=== PATIENT | female | born 1955 | race Two or more races ===

== ENCOUNTER → 2016-10-11 | Outpatient (CLI) | payer OTHER ==
--- NOTE | 2016-10-11 11:30 | RADRPT ---
PROCEDURE: Left knee radiographs. CLINICAL INDICATION: Left knee pain. TECHNIQUE: Four views. Weight bearing. Frontal, lateral, oblique, and patellar view. COMPARISON: No prior studies are available for comparison. FINDINGS: There is no fracture or dislocation. The soft tissues are normal. There are degenerative changes with osteophytes arising from all 3 joint compartment margins. There is medial joint compartment narrowing, subarticular sclerosis, and deformity. There is no lytic or blastic lesion. There is no radiopaque foreign body. IMPRESSION: 1. Severe degenerative changes of the left knee. 2. No acute abnormality. RPTAT: QQ .Ronak Holley MD, MD Date Time Electronically viewed and signed by .Ronak Holley MD, MD on 10/11/2016 11:30 .R/
== END | disposition home or self-care (01) ==
LOC: HKI 10:06
PROVIDERS: ATTEND Orthopaedic Surgery
DX: M25.562 Pain in left knee (principal)

== ENCOUNTER → 2017-02-03 | Outpatient (CLI) | payer OTHER ==
--- NOTE | 2017-02-04 07:11 | HKNOTE ---
DATE OF SERVICE: 02/03/2017 CHIEF COMPLAINT: Left knee pain. HISTORY OF PRESENT ILLNESS: This is a 61-year-old obese female who is complaining of bilateral knee pain with the left greater than right. She is using a walker for ambulation. Since her previous e valuation by Dr. Landis, she has lost approximately 35 pounds. She states that the left knee pain i s severe. She has not had any previous injections. She denies any hip or groin pain. She has had a previous lumbar fusion with Dr. Thrasher at [facility]. GAIT: Antalgic gait, use of walker. LEFT KNEE EXAMINATION: No effusion. Minimal varus deformity. 0 to 120 degrees range of motion, me dial joint line tenderness. Negative Renard, negative anterior drawer, negative posterior drawer, stable to varus and valgus stress. RIGHT KNEE EXAMINATION: No effusion. Minimal varus deformity. 0 to 120 degrees range of motion, m edial joint line tenderness. Negative Renard, negative anterior drawer, negative posterior drawer, stable to varus and valgus stress. MOTOR STRENGTH: 5/5 quads, hamstrings, tibialis anterior, gastrocsoleus. X-RAYS LEFT KNEE: Three views of the left knee demonstrate mild varus deformity with medial joint s pace obliteration with bone on bone contact. There is marginal osteophytes and subchondral sclerosi s. There is marked patellofemoral joint narrowing. IMPRESSION: A 61-year-old obese female with bilateral knee osteoarthritis. PLAN: I discussed treatment options including a left knee corticosteroid injection. We will reques t authorization for an injection. She will return in 4 weeks for left knee corticosteroid injection . She can take ibuprofen as needed. I discussed the risk of injection which include increase in bl ood sugar, allergic reaction, infection, continued pain. All questions were answered to her satisfa ction. I also discussed weight loss management with the patient. Dictated By: SHERRIE TRUONG/PADMINI Conf#: [id number] DID#: [id number]
--- NOTE | 2017-02-05 13:03 | RADRPT ---
PROCEDURE: XR Knee. CLINICAL INDICATION: Pain TECHNIQUE: AP, oblique, sunrise, and lateral views of the right knee were obtained weight bearing. The images reviewed on a PACS workstation. COMPARISON: None FINDINGS: No acute fracture or dislocation. There is severe, tricompartmental osteoarthritis with bone on bone contact in the medial compartment. No joint effusion or osseous lesion. IMPRESSION: No fracture, dislocation or joint effusion. Severe, tricompartmental, osteoarthritis. RPTAT: EE .Cassandra Li MD, Date Time Electronically viewed and signed by .Cassandra Li MD, on 02/05/2017 13:03 .F/
== END | disposition home or self-care (01) ==
LOC: HKI 10:48
PROVIDERS: ATTEND Orthopaedic Surgery Adult Reconstructive Orthopaedic Surgery
DX: M17.0 Bilateral primary osteoarthritis of knee (principal); E66.9 Obesity, unspecified
CPT/HCPCS: 73564; Z7500; G0463

== ENCOUNTER → 2017-02-27 | Outpatient (CLI) | payer OTHER ==
--- NOTE | 2017-02-27 14:50 | PN ---
Date/Time of Note Date/Time of Note DATE: 02/27/17 TIME: 14:43 Outpatient Progress Note Chief Complaint Bilateral knee pain. HPI 61-year-old female presents today for follow-up regarding bilateral knee pain secondary to osteoarthritis. Patient states that her left knee pain is worse than her right knee pain. Uses front wheeled walker for assisted ambulation. Denies any falls or injury since she was last seen. Patient is morbidly obese and currently has bilateral bone on bone deformity to the medial compartment of the knees but secondary to increased BMI the cost/benefit is not in favor of knee replacement secondary to increased risk of infection. Patient continues with constant pain to the bilateral knees especially with weightbearing activities. Review of Systems Const: No Fever, no chills, no Fatigue, normal appetite, no diaphoresis. Resp: No SOB, no wheezing, no chest pain. CV: No chest pain, no palpitaions, no OZUNA. Physical Exam Blood pressure is 140/70, temperature is 98.6, pulse is 60, respiratory rate is 14, height is 5 foot 2 inches, weight is 255 pounds General Appearance: well-developed, well-nourished, in no acute distress. Left knee: Tenderness to palpation to the left knee primarily around the medial compartment. Crepitus is seen with range of motion. Patient is able to fully extend actively and flex up to 120 today with pain. Gait is abnormal and antalgic using front wheeled walker. Negative Homans sign. Negative Lockman's test. 5/5 strength on resistance with flexion and extension. Right knee: Tenderness to palpation to the right knee primarily to the medial compartment. Gait is abnormal and antalgic with use of front wheeled walker. Normal sensory examination to light touch. 5/5 strength on resistance. Patient is able to flex up to around 120 today with ability to perform full extension actively. Assessment/Plan Problems: (1) Bilateral primary osteoarthritis of knee (2) Morbid obesity * At the current time, patient is not a surgical candidate for total knee arthroplasty although x-rays do indicate that she has extensive bone on bone deformity especially to the medial compartment. Given patient's increased weight she is at high risk for infection as well as decreased longevity of prosthesis. Alternative options were discussed today and patient would like to pursue cortisone injection to the left knee as this is the joint creating the most severe pain. * Area of injection was marked and cleaned with Betadine swab followed by alcohol swab. Using 25-gauge needle, 1 mL of 40mg/mL Kenalog mixed with 2 cc of 1% lidocaine injected into the knee. Patient was observed for 5 to min 10 minutes prior to discharge. Patient tolerated procedure well with no complications. * Patient discussed directly with Dr. Granados, and authorization for right knee cortisone injection will be requested. Patient will follow up in 4 weeks for injection to the right knee. * Anti-inflammatories for osteoarthritis. * Dietary changes as well as increased exercise for weight loss. * Follow-up 4 weeks for right knee cortisone injection and repeat evaluation. TOPHER SCALES PA-C Feb 27, 2017 14:50
--- NOTE | 2017-02-27 19:46 | HKNOTE ---
DATE OF SERVICE: 02/27/2017 The patient is here today for a left knee steroid injection. After obtaining consent, the left knee was prepped and draped in the usual sterile fashion. A mixture of 1 mL of Depo-Medrol along with 3 mL of 1% lidocaine was instilled into the left knee under sterile technique through the lateral por kathleen. There were no complications. She tolerated the procedure well. We will request authorization for right knee corticosteroid injection. She will follow up in 6 week s. Dictated By: SHERRIE TRUONG/PADMINI Conf#: [id number] DID#: [id number]
== END | disposition home or self-care (01) ==
LOC: HKI 16:17
PROVIDERS: ATTEND Orthopaedic Surgery Adult Reconstructive Orthopaedic Surgery
DX: M17.0 Bilateral primary osteoarthritis of knee (principal); E66.01 Morbid (severe) obesity due to excess calories
CPT/HCPCS: 20610; J1030; Z7500; Z7610; G0463

== ENCOUNTER → 2017-03-17 | Outpatient (CLI) | payer OTHER ==
--- NOTE | 2017-03-17 11:17 | PN ---
Date/Time of Note Date/Time of Note DATE: 03/17/17 TIME: 11:12 Outpatient Progress Note Chief Complaint Right knee cortisone injection HPI 61-year-old female presents today for right knee cortisone injection. Patient has history of ongoing severe bilateral knee osteoarthritis. Patient has bone- on-bone deformity. On last visit it was discussed that patient does need total knee arthroplasty but given morbid obesity She is at increased risk for complications status post surgery. She continues with ongoing pain to the bilateral knee. Presents today for right knee cortisone injection as a method of conservative therapy while she is in process of losing weight. Review of Systems Const: No Fever, no chills, no Fatigue, normal appetite, no diaphoresis. Resp: No SOB, no wheezing, no chest pain. CV: No chest pain, no palpitaions, no OZUNA. Physical Exam Height 5 feet 2 inches, weight 255 pounds General Appearance: well-developed, well-nourished, in no acute distress. Right knee: Patient is able to flex up to 120 today. Palpable crepitus to the medial compartment. Tenderness to palpation more medially. Normal sensory examination to light touch. Morbid obesity in stature. Gait is antalgic today. Assessment/Plan Problems: (1) Bilateral primary osteoarthritis of knee (2) Morbid obesity * Cortisone injection performed today. Area of injection was marked and then cleaned with isopropyl alcohol swabs. Using 18-gauge needle, 2 cc of 1% lidocaine and 1 cc of 40 mg/mL of Kenalog drawn today. Using a 25-gauge needle , intra-articular cortisone injection was performed without complication. Band- Aid applied after. Patient observed for 5 minutes prior to discharge. No complications during injection. * Continue with diet/exercise regimen for weight loss. * Anti-inflammatories as needed for bilateral knee osteoarthritis. * Follow-up as needed. Future consideration may be left knee cortisone injection depending on pain level. Patient is aware that cortisone injections may be performed every 4 months if needed. TOPHER SCALES PA-C Mar 17, 2017 11:17
== END | disposition home or self-care (01) ==
LOC: HKI 10:54
PROVIDERS: ATTEND Orthopaedic Surgery Adult Reconstructive Orthopaedic Surgery
DX: M17.0 Bilateral primary osteoarthritis of knee (principal); E66.01 Morbid (severe) obesity due to excess calories
CPT/HCPCS: 20610; Z7610